=== PATIENT | male | born 1945 | race Caucasian/White ===

== ENCOUNTER 2019-04-22 03:12 | Emergency (ER) | payer OTHER ==
[~2019-04-22] VITALS: Ht 185.4 cm; Wt 83.9 kg
[~2019-04-22 03:12] MED LIST: ECHINAC-GOLDEN1 EACH PO; GLUCOSAMIN-CHO1 EACH PO; NAPROSYN500 MG PO; TRAMADOL 50 MG50 MG PO
[2019-04-22 03:46] LABS: EOSINOPHILS 2.6 % (0.0-3.0); HEMATOCRIT 41.2 % (42.0-52.0); HEMOGLOBIN 14.6 gm/dL (14.0-18.0); LYMPHOCYTES 38.7 % (24.0-44.0); MCH 28.9 pg (26.0-34.0); MCHC 35.5 g/dL (28.0-37.0); MCV 81.6 fL (80.0-100.0); MONOCYTES 9.6 % (1.0-8.0); PLATELET COUNT 186 thou/uL (150-400); POLYS 48.1 % (36.0-66.0); RBC 5.05 mil/uL (4.50-6.00); RDW 14.4 % (10.5-14.5); WBC 6.2 thou/uL (4.0-11.0)
[2019-04-22 03:54] LABS: ANION GAP 10 mmol/L (7-16); BUN 15 mg/dL (7-18); CALCIUM 8.8 mg/dL (8.5-10.1); CHLORIDE 105 mmol/L (98-107); CO2 28 mmol/L (21-32); GLUCOSE 116 mg/dL (74-106); POTASSIUM 3.8 mmol/L (3.5-5.1); SODIUM 143 mmol/L (136-145)
[2019-04-22 03:59] LABS: APTT 28.1 Seconds (24.5-32.8); PROTIME 10.1 Seconds (9.3-11.4)
[2019-04-22 04:04] LABS: ALBUMIN 3.8 g/dL (3.4-5.0); SGOT 21 U/L (15-37); SGPT 31 U/L (30-65); TOTAL BILIRUBIN 0.6 mg/dL (<0.1-1.0); TROPONIN-I <0.06 ng/mL (<0.06)
[2019-04-22 05:06] VITALS: BP 177/84
--- NOTE | 2019-04-22 07:51 | EKG ---
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 : 1945 Requested By: J Luis Go Order Number: [id number] MD: Josué Douglass Measurements Intervals [place] Rate: 64 P: 49 ME: 172 QRS: 33 QRSD: 95 T: 29 QT: 426 QTc: 440 Interpretive Statements Sinus rhythm Atrial premature complex Compared to ECG 05/30/2003 12:41:10 Atrial premature complex(es) now present premature ventricular complexes no longer present Electronically Signed On 04-22-2019 7:51:41 CDT by Josué Douglass [email or web address] ��������������������������������������������� <ELECTRONICALLY SIGNED> ���������������������������������������� By: Josué Douglass MD, [facility] ��������������������������������������������� 04/22/19 0751 D: [id number] Josué Douglass MD, FACC /EPI
== END 2019-04-22 05:11 | disposition home or self-care (01) ==
LOC: ER 03:12
PROVIDERS: Emergency Medicine
DX: R53.1 Weakness (principal); Z90.49 Acquired absence of other specified parts of digestive tract

== ENCOUNTER 2021-05-26 12:13 | Emergency (ER) | payer OTHER ==
[~2021-05-26] VITALS: Ht 185.4 cm; Wt 90.7 kg
--- NOTE | 2021-05-26 13:49 | EKG ---
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
[2021-05-26 13:57] LABS: ABSOLUTE NEUTROPHILS 3.3 thou/uL (1.4-8.2); EOSINOPHILS 2.7 % (0.0-3.0); HEMATOCRIT 43.7 % (42.0-52.0); HEMOGLOBIN 15.2 gm/dL (14.0-18.0); LYMPHOCYTES 23.3 % (24.0-44.0); MCH 29.2 pg (26.0-34.0); MCHC 34.9 g/dL (28.0-37.0); MCV 83.7 fL (80.0-100.0); MONOCYTES 7.5 % (1.0-8.0); PLATELET COUNT 197 thou/uL (150-400); POLYS 65.5 % (36.0-66.0); RBC 5.23 mil/uL (4.50-6.00); RDW 14.5 % (10.5-14.5); WBC 5.1 thou/uL (4.0-11.0)
[2021-05-26 14:05] LABS: ANION GAP 6 mmol/L (7-16); BUN 13 mg/dL (7-18); CALCIUM 8.4 mg/dL (8.5-10.1); CHLORIDE 105 mmol/L (98-107); CO2 30 mmol/L (21-32); GLUCOSE 106 mg/dL (74-106); POTASSIUM 4.1 mmol/L (3.5-5.1); SODIUM 141 mmol/L (136-145)
[2021-05-26 14:13] LABS: TROPONIN-I <0.06 ng/mL (<0.06)
[2021-05-26 14:41] VITALS: BP 175/109
== END 2021-05-26 14:41 | disposition home or self-care (01) ==
LOC: ER 12:13
PROVIDERS: Student in an Organized Health Care Education/Training Program
DX: I10 Essential (primary) hypertension (principal); Z98.890 Other specified postprocedural states; Z85.828 Personal history of other malignant neoplasm of skin; Z79.1 Long term (current) use of non-steroidal anti-inflammatories (NSAID); Z79.899 Other long term (current) drug therapy

== ENCOUNTER → 2021-07-19 | Outpatient (CLI) | payer OTHER | LOC: SJCVC 10:44 | PROVIDERS: ATTEND Internal Medicine | DX: R94.31 Abnormal electrocardiogram [ECG] [EKG] (principal); I10 Essential (primary) hypertension; Z13.220 Encounter for screening for lipoid disorders; Z88.1 Allergy status to other antibiotic agents; Z79.899 Other long term (current) drug therapy ==

== ENCOUNTER → 2021-08-02 | Outpatient (CLI) | payer OTHER | LOC: SJCVCIMAG 08:32 | PROVIDERS: ATTEND Internal Medicine | DX: I08.2 Rheumatic disorders of both aortic and tricuspid valves (principal); I11.9 Hypertensive heart disease without heart failure; R94.31 Abnormal electrocardiogram [ECG] [EKG]; Z79.899 Other long term (current) drug therapy; Z88.1 Allergy status to other antibiotic agents ==

== ENCOUNTER → 2021-08-30 | Outpatient (CLI) | payer OTHER | LOC: SJCVC 10:17 | PROVIDERS: ATTEND Internal Medicine | DX: I10 Essential (primary) hypertension (principal); Z88.8 Allergy status to other drugs, medicaments and biological substances; Z79.899 Other long term (current) drug therapy ==

== ENCOUNTER → 2021-09-15 | Outpatient (CLI) | payer OTHER | LOC: RAD 14:31 | PROVIDERS: ATTEND Nurse Practitioner | DX: M47.816 Spondylosis without myelopathy or radiculopathy, lumbar region (principal); M54.50 Low back pain, unspecified ==